=== PATIENT | male | born 1950 | race Caucasian/White ===

== ENCOUNTER 2017-08-05 06:11 | Day surgery (SDC) | payer MEDICARE, BC ==
[2017-08-04 11:14] LABS: HEMATOCRIT 33.6 % (42.0-54.0); HEMOGLOBIN 9.6 g/dL (13.5-17.5); MCHC 28.6 g/dL (31.0-37.0); MCV 61.1 fL (80.0-100.0); WBC 6.7 10x3/uL (4.8-10.8)
[2017-08-04 11:27] LABS: MCH 17.5 pg (26.0-34.0); PLATELET COUNT 379 10x3/uL (130-400)
[~2017-08-05 06:11] MED LIST: DILANTIN100 MG PO; FLOMAX0.4 MG PO; LISINOPRIL10 MG PO
[2017-08-05 12:32] VITALS: BP 138/74; BMI 31.4
--- NOTE | 2017-08-05 18:30 | NUR ---
IV DC WITH CATHER TIP INTACT, HAD BM WITH BLOOD
--- NOTE | 2017-08-05 19:18 | NUR ---
BLADDER SCAN DONE 165CC, DC HOME PER DR FONTAINE
--- NOTE | 2017-08-06 08:04 | OP ---
PATIENT NAME: MARTINA MULTANI MEDICAL RECORD: [id number] :48 LOCATION:[facility] ADMISSION DATE: SURGEON: ROMAN FONTAINE MD DATE OF OPERATION: 08/05/2017 SURGEON: Roman Fontaine MD. ANESTHESIA: MAC by Clyde Dumont. PREOPERATIVE DIAGNOSIS: Elevated PSA at 4.2. PROCEDURES: Transrectal ultrasound and prostate biopsy. FINDINGS: A 38.6-gram prostate. No hypoechoic areas. BLOOD LOSS: None. CLINICAL HISTORY: This is a 66-year-old male, who has a positive family history of prostate cancer. His father has prostate cancer. He has an elevated PSA of 4.2. His rectal examination revealed a firm ridge on the left lateral aspect of the prostate. Due to his positive family history and elevated PSA, we are proceeding with a prostate biopsy. The patient had antibiotics for several days prior to coming here. He also had an enema last night. The patient was also covered with Ancef production sorter to the OR. He is not allergic to any medications. DESCRIPTION OF PROCEDURE: The patient was given IV sedation. He was then placed in dorsal lithotomy position and prepped and draped. The ultrasound probe was put into the rectum. Size measurements of the prostate were obtained. Sextant biopsies were then obtained using a 21-gauge biopsy gun. At least 3 cores from each sextant were obtained. At the end of the procedure, the patient was awakened and brought to recovery room. TRANSINT:[id number] Voice Confirmation ID: [id number] DOCUMENT ID: [id number] ROMAN FONTAINE MD at 0804 CC: [id number] DICTATION DATE: 08/05/171750 SENIOR [employer] CONSULTANT: 08/05/171950 [facility] 08/05/17 [facility] [address] [place] [address]
== END 2017-08-05 19:20 | disposition home or self-care (01) ==
LOC: D.PAN → D.OPS 06:11 → D.PAN 14:00 → D.OPS 14:00
PROVIDERS: Urology
DX: R97.20 Elevated prostate specific antigen [PSA] (principal); I10 Essential (primary) hypertension; Z01.812 Encounter for preprocedural laboratory examination; N40.1 Benign prostatic hyperplasia with lower urinary tract symptoms

== ENCOUNTER → 2017-08-15 10:49 | Outpatient (CLI) | payer MEDICARE, BC ==
[2017-08-05 12:32] VITALS: BMI 31.4
[~2017-08-15 10:49] MED LIST changes: +ASPIRIN81 MG PO
== END | disposition home or self-care (01) ==
LOC: D.NM 08:15 → D.CT 08:15
DX: C61 Malignant neoplasm of prostate (principal)

== ENCOUNTER 2017-11-19 05:00 | Inpatient (IN) | payer MEDICARE ==
[2017-11-18 09:06] LABS: BASOPHILS 0.4 % (0-2); EOSINOPHILS 3.4 % (0-7); HEMATOCRIT 32.3 % (42.0-54.0); HEMOGLOBIN 9.4 g/dL (13.5-17.5); IMMATURE GRANULOCYTES 0.1 % (0-5); LYMPHOCYTES 28.2 % (15-50); MCHC 29.1 g/dL (31.0-37.0); MCV 59.8 fL (80.0-100.0); MONOCYTES 8.9 % (2-11); PLATELET COUNT 382 10x3/uL (130-400); RDW 20.1 % (11.5-14.5); WBC 8.3 10x3/uL (4.8-10.8)
[2017-11-18 09:14] LABS: MCH 17.4 pg (26.0-34.0)
[2017-11-18 09:24] LABS: APTT 26.7 SECONDS (22.8-39.4); INR 1.05 (0.85-1.17); PROTIME 13.3 SECONDS (11.6-15.0)
[2017-11-19] VITALS (15 sets, daily range): BP systolic 97–125; BP diastolic 57–83; BMI 29.5; BMI 32.3
[~2017-11-19] VITALS: Ht 170.2 cm; Wt 93.2 kg
--- NOTE | ~2017-11-19 | OP ---
PATIENT NAME: MARTINA MULTANI MEDICAL RECORD: [id number] :48 LOCATION:[facility] D.2305 ADMISSION DATE:11/19/17 SURGEON: ROMAN CORNEJO MD DATE OF OPERATION: 11/19/2017 This is a cosurgeon note. I was the general surgeon. Dr. Fontaine was the urologic surgeon. This is for the open retropubic prostatectomy and pelvic lymph node sampling. Please see Dr. Fontaine's note as well. I was present for all the critical portions of the operation. I scrubbed in as the peritoneal cavity had been entered. I performed contralateral dissection in the retroperitoneum and identified some sterling tissue, which was removed. Pedicles to the lymph sterling tissue were clamped with titanium clips to prevent a lymphocele. The lymph sterling tissue was removed and sent to the pathologist for interpretation. The obturator nerve was identified and was protected throughout the operation. Dr. Fontaine then performed contralateral dissection on my side of the patient for lymph node sampling. We then continued dissection in the pelvis. Dr. Fontaine incised the endopelvic fascia bilaterally. I did some dissection on either side up around the prostate gland laterally. I then divided the puboprostatic attachments. I then performed contralateral dissection of the prostatic attachments laterally. This was done between metallic clips. This freed up the prostate gland on the right side. Dr. Fontaine performed a similar procedure on the left side. I then ligated the dorsal veins of the prostate gland and divided the veins between the ties in order to prevent backbleeding. I then assisted in division of the urethra. We also divided the Leslie catheter. New Leslie catheter was placed and used this as traction on the prostate gland. I then did some blunt dissection of the prostate gland off the anterior rectum. At no time was there any rectal injury during this dissection. I incised the anterior portion of the prostate gland in the midline and I was able to get around both vas deferens and I clipped them and divided them. We had also got around the base of the seminal vesicles. I clipped them and divided as well. Denonvilliers fascia was divided. I retracted the prostate gland as Dr. Fontaine performed the division of the prostate gland from the bladder. The prostate gland was then handed off. We performed a mucosal everting procedure and Dr. Fontaine did his side and I did my side of this mucosal everting procedure. He and I both performed kind of a tennis racquet closure of the bladder opening, making sure not to ligate or injure either ureter. A Leslie catheter was placed through the urethra and then into the bladder and then inflated after we had placed 5 sutures using the Capio device. I placed 3 of these sutures and he placed 2 of the sutures. They were placed from the urethral stump to the opening of the bladder. We then pulled down on the Leslie catheter as the sutures were tied. The bladder was irrigated. There was no leakage. A hemostatic agent was applied between the pubic symphysis and the anastomosis between the urethra and the bladder. This hemostatic agent was also placed on either side of the pelvic dissection. I then performed fascial closure utilizing a running looped 0 PDS. Subdermis was approximated with interrupted 3-0 Vicryl. The skin was approximated with metallic clips. The drain was sutured to skin with a 2-0 nylon. I scrubbed out after the final closure of the abdomen. TRANSINT:[id number] Voice Confirmation ID: [id number] DOCUMENT ID: [id number] OPERATIVE REPORT [id number] MARTINA MULTANI ROBERT MD CC: ROMAN FONTAINE MD [id number] DICTATION DATE: 11/20/17 1610 TUBE COATER: 11/20/17 1740 ADM IN [facility] [address] [place] [address]
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
[~2017-11-19 05:00] MED LIST changes: -ASPIRIN81 MG PO
[2017-11-19] MEDS ORDERED: ASPIRIN81 MG PO (06:19)
[2017-11-19 14:52] LABS: HEMOGLOBIN 9.2 g/dL (13.5-17.5)
[2017-11-20] VITALS (18 sets, daily range): BP systolic 98–136; BP diastolic 56–71; Ht 170.2 cm; Wt 93.2 kg
[2017-11-20 04:40] LABS: CALCIUM 7.1 mg/dL (8.5-10.1); CREATININE - SERUM 1.1 mg/dL (0.6-1.3)
[2017-11-20 04:51] LABS: BASOPHILS 0.2 % (0-2); EOSINOPHILS 0.2 % (0-7); HEMATOCRIT 27.1 % (42.0-54.0); HEMOGLOBIN 8.5 g/dL (13.5-17.5); IMMATURE GRANULOCYTES 0.2 % (0-5); LYMPHOCYTES 15.7 % (15-50); MCH 22.3 pg (26.0-34.0); MCHC 31.4 g/dL (31.0-37.0); MEAN PLATELET VOLUME 9.9 fL (7.4-10.4); MONOCYTES 9.9 % (2-11); NEUTROPHILS 73.8 % (40-80); WBC 10.3 10x3/uL (4.8-10.8)
[2017-11-20 04:52] LABS: MCV 70.9 fL (80.0-100.0); PLATELET COUNT 194 10x3/uL (130-400); RBC 3.82 10x6/uL (4.20-6.10)
[2017-11-21 03:00] VITALS: BP 131/74
[2017-11-21 07:00] VITALS: BP 142/70
[2017-11-21 09:43] LABS: BASOPHILS 0.2 % (0-2); EOSINOPHILS 1.8 % (0-7); HEMATOCRIT 25.7 % (42.0-54.0); IMMATURE GRANULOCYTES 0.2 % (0-5); LYMPHOCYTES 13.9 % (15-50); MCH 21.8 pg (26.0-34.0); MCHC 31.1 g/dL (31.0-37.0); MONOCYTES 9.5 % (2-11); NEUTROPHILS 74.4 % (40-80); PLATELET COUNT 183 10x3/uL (130-400); RBC 3.67 10x6/uL (4.20-6.10); RDW 27.2 % (11.5-14.5); WBC 10.8 10x3/uL (4.8-10.8)
== END 2017-11-21 11:28 | disposition home or self-care (01) | DRG 708 ==
LOC: D.ICU 05:00 → D.SDCHOLD 05:00 → D.ICU 15:07
PROVIDERS: Anesthesiology; Urology
PROC: 0VT30ZZ Resection of Bilateral Seminal Vesicles, Open Approach (ICD-10-PCS; 2017-11-19)
PROC: 07BC0ZX Excision of Pelvis Lymphatic, Open Approach, Diagnostic (ICD-10-PCS; 2017-11-19)
PROC: 0VTQ0ZZ Resection of Bilateral Vas Deferens, Open Approach (ICD-10-PCS; 2017-11-19)
PROC: 0VT00ZZ Resection of Prostate, Open Approach (ICD-10-PCS; principal; 2017-11-19 07:30)
DX: C61 Malignant neoplasm of prostate (principal); I10 Essential (primary) hypertension

== ENCOUNTER → 2018-01-13 13:42 | Outpatient (CLI) | payer MEDICARE ==
[2017-11-20 09:30] VITALS: BMI 32.3
[~2018-01-13 13:42] MED LIST changes: +ASPIRIN81 MG PO
== END | disposition home or self-care (01) ==
LOC: D.LAB 13:42
DX: Z98.890 Other specified postprocedural states (principal); C61 Malignant neoplasm of prostate; Z12.5 Encounter for screening for malignant neoplasm of prostate

== ENCOUNTER → 2019-06-18 16:00 | Outpatient (CLI) | payer MEDICARE ==
[2017-11-20 09:30] VITALS: BMI 32.3
== END | disposition home or self-care (01) ==
LOC: D.LABREF 16:00
PROVIDERS: ATTEND Urology
DX: R31.9 Hematuria, unspecified (principal)